=== PATIENT | female | born 1975 | race African-American/Black ===

== ENCOUNTER 2017-01-26 15:03 | Emergency (ER) | payer MEDICAID ==
[~2017-01-26] VITALS: Ht 170.2 cm; Wt 117.9 kg
[2017-01-26 18:56] LABS: Albumin 3.6 g/dL (3.4-5.0); BUN/Creatinine Ratio 8.2; Calcium 7.9 mg/dL (8.5-10.1); Potassium 3.8 mmol/L (3.5-5.1)
[2017-01-26 18:59] LABS: Basophils # (auto) 0 uL; Basophils % (auto) 0.8 % (0.0-2.0); Bilirubin, Total 0.5 mg/dL (0.2-1.0); Eosinophils # (auto) 0.1 uL; Eosinophils % (auto) 1.7 % (0.0-7.0); Lymphocytes # (auto) 2.3 uL; Lymphocytes % (auto) 38.1 % (10.0-50.0); Mean Corpuscular Hgb Conc. 32.5 g/dL (32.0-36.0); Mean Corpuscular Volume 86.2 fL (80.0-100.0); Mean Platelet Volume 7.9 fL (7.4-10.4); Monocytes # (auto) 0.5 uL; Monocytes % (auto) 8.2 % (0.0-12.0); Neutrophils # (auto) 3.1 uL; Neutrophils % (auto) 51.2 % (37.0-80.0); Platelet Count (auto) 390 10^3/uL (140-450); Red Cell Distribution Width 14.3 % (11.6-16.0); Total Protein 7.2 g/dL (6.4-8.2); White Blood Cell 6.1 10^3/uL (4.4-10.8)
[2017-01-27 03:42] VITALS: BP 109/72
== END 2017-01-27 03:31 | disposition home or self-care (01) ==
LOC: ER 15:03
DX: K52.9 Noninfective gastroenteritis and colitis, unspecified (principal); K64.4 Residual hemorrhoidal skin tags; F20.9 Schizophrenia, unspecified
CPT/HCPCS: 36415; 80053; 85025

== ENCOUNTER 2019-12-10 21:16 | Emergency (ER) | payer MEDICAID ==
[~2019-12-10] VITALS: Ht 170.2 cm; Wt 98.9 kg
[2019-12-11 02:40] VITALS: BP 129/89
[2019-12-11] MEDS ORDERED: BACLOFEN 10 MG TAB PO ONE (03:30)
[2019-12-11] MEDS ORDERED: HYDROcodone-ACET 10/325MG TAB PO ONE (03:30)
== END 2019-12-11 03:40 | disposition home or self-care (01) ==
LOC: ER 21:19
DX: M62.838 Other muscle spasm (principal); M25.522 Pain in left elbow; M25.521 Pain in right elbow; W01.0XXA Fall on same level from slipping, tripping and stumbling without subsequent striking against object, initial encounter; Y93.G3 Activity, cooking and baking; Y92.090 Kitchen in other non-institutional residence as the place of occurrence of the external cause; Y99.8 Other external cause status
CPT/HCPCS: 73070; 81025

== ENCOUNTER 2021-01-25 10:52 | Emergency (ER) | payer OTHER, MEDICAID ==
[~2021-01-25] VITALS: Ht 170.2 cm; Wt 105.7 kg
[2021-01-25 11:08] VITALS: BP 167/102
[2021-01-25] MEDS ORDERED: HYDROcodone-ACET 10/325MG TAB PO ONE (11:15)
== END 2021-01-25 12:06 | disposition home or self-care (01) ==
LOC: ER 10:52 → EDBD 10:52 → EDSEX 10:52 → ER 12:06
DX: S39.012A Strain of muscle, fascia and tendon of lower back, initial encounter (principal); M51.37 Other intervertebral disc degeneration, lumbosacral region; V43.62XA Car passenger injured in collision with other type car in traffic accident, initial encounter; Y93.89 Activity, other specified; Y92.488 Other paved roadways as the place of occurrence of the external cause; Y99.8 Other external cause status
CPT/HCPCS: 72100